=== PATIENT | male | born 1930 | race Caucasian/White ===

== ENCOUNTER → 2017-01-28 | Outpatient (CLI) | payer OTHER, BC ==
[~2017-01-28] MED LIST: ACET-1256 PO; DIGO0.122 PO; FURO-85 PO; IMD/2 PO; LNX125 PO; METO25TA3 PO; OPTIRAY 320 IV PRN; POTA10CA28 PO; SACC250C11; SIMV10TA2 PO; WARF5TAB90 PO
--- NOTE | 2017-01-28 14:58 | DIAGNOSTIC IMAGING REPORT ---
(CHEST) THORAX WITH CT DOSE: 1823.46 mGycm HISTORY: CECAL CA TECHNIQUE: Multiaxial CT images of the chest were performed following the intravenous administration of contrast. A dose lowering technique was utilized adhering to the principles of ALARA. COMPARISON: None. FINDINGS: Substernal thyroid 2 months containing calcified nodularity. Generalized thyroid enlargement. No significant axillary adenopathy. Hilar and mediastinal regions show several small nodes although no significant bulky adenopathy is appreciated. Lungs show no evidence for acute infiltrate. The are clear. There is a 3 mm nodular density right middle lobe. There is a 2 mm nodular density superior segment right lower lobe. Limited evaluation the upper abdomen shows a 1.8 cm hyperdensity superior right diaphragmatic lobe region IMPRESSION: 1. 2 small nodular densities right lung measuring 3 and 2 mm. 2. Remainder of the study is negative. 3. 1.8 cm hypodense nodule superior right hepatic lobe 4. Follow-up of the nodular densities per Fleischner criteria Please refer to below summary of Fleischner criteria recommendations for follow-up of incidental CT nodules (Dhara Santacruz, Guidelines for management of small pulmonary nodules detected on CT scans: A statement from the Fleischner Society, Radiology 237: [phone].) SOLID NODULES Solitary nodule size: <6 mm * low risk patients: no follow-up needed * high risk patients: optional CT at 12 months Solitary nodule size: 6-8 mm * low risk patients: follow-up at 6-12 months, then consider further follow-up at 18-24 months * high risk patients: initial follow-up CT at 6-12 months and then at 18-24 months if no change Solitary nodule size: >8 mm * either low or high risk patients - consider follow-up CT at 3 months, and/or CT-PET, and/or biopsy Multiple nodules size: <6 mm * low risk patients: no routine follow-up * high risk patients: optional CT at 12 months Multiple nodules size: 6-8 mm * low risk patients: follow-up at 3-6 months, then consider further follow-up at 18-24 months * high risk patients: follow-up at 3-6 months, then at 18-24 months if no change Multiple nodules size: >8 mm * low risk patients: follow-up at 3-6 months, then consider further follow-up at 18-24 months * high risk patients: follow-up at 3-6 months, then at 18-24 months if no change Note: newly detected indeterminate nodule in persons 35 years of age or older. * Low risk patients: minimal or absent history of smoking and/or other known risk factors * high risk patients: history of smoking or of other known risk factors (e.g. first degree relative with lung cancer, or exposure to asbestos, radon, uranium) * if a nodule up to 8 mm is partly solid or is ground glass further follow-up is required after 24 months to exclude possible slow growing adenocarcinoma (ML) SUBSOIL NODULES Solitary pure ground-glass nodule * nodule size <6 mm - no CT follow-up required * nodule size >=6 mm - follow-up CT at 6-12 months, then every 2 years until 5 years Solitary part-solid nodule * nodule size <6 mm - no CT follow-up required * nodule size >=6 mm - follow-up CT at 3-6 months. If unchanged, and solid component remains <6 mm, then annual follow-up for 5 years Multiple subsolid nodules * nodule size <6 mm - follow-up CT at 3-6 months, consider further follow-up at 2 and 4 years if stable * nodule size >=6 mm - follow-up CT at 3-6 months, subsequent management based on the most suspicious nodule(s) The above report was generated using voice recognition software. It may contain grammatical, syntax or spelling errors. Electronically signed by: Arash Banks M.D. 01/28/2017 2:56 PM Dictated Date/Time: 01/28/2017 2:52 PM
--- NOTE | 2017-01-28 15:02 | DIAGNOSTIC IMAGING REPORT ---
ABD/PELVIS IV AND ORAL CONT CLINICAL HISTORY: 86 years-old Male presenting with CECAL CA. TECHNIQUE: Multidetector CT of the abdomen and pelvis was performed after the administration of oral and intravenous contrast. IV contrast: 94 mL of Optiray 320. A dose lowering technique was used consistent with the principles of ALARA (as low as reasonably achievable). COMPARISON: 06/13/2016. CT DOSE (mGy.cm): The estimated cumulative dose is 1823.46 inclusive of the chest CT. FINDINGS: Leather Scrubber topogram: Left-sided pacer with leads to the right atrium and right ventricular apex noted. Lung bases: Lung bases clear. Multichamber enlargement of the heart. Coronary artery calcification. Right ventricular pacer wire appears to terminate along the interventricular septum. No pericardial or pleural effusion. Liver: Well-defined lobular hypodensity at the right hepatic dome, stable to slightly increased in size from prior, indeterminate but likely representing a hepatic cyst or hamartoma. Patent hepatic vasculature. Biliary: No intrahepatic or extrahepatic biliary ductal dilatation. Normal gallbladder. Pancreas: Moderate parenchymal atrophy. Cystic lesion in the uncinate process grossly similar in size to prior exam and somewhat poorly defined given the degree of parenchymal atrophy. This measures approximately 2 cm. No gross evidence of pancreatic ductal dilatation. Spleen: Normal. Adrenal glands: Focal calcification noted in the right adrenal gland. Otherwise normal. Kidneys and ureters: Nonobstructing 2 mm calculus at the lower pole the right kidney. No hydronephrosis. Ureters normal. Gastrointestinal tract: Postsurgical changes of right hemicolectomy. Stool ball noted at the transverse colon suture margin. No convincing evidence of recurrent mass lesion. No bowel obstruction. Peritoneal cavity: No free fluid or intraperitoneal gas. Bladder: Mild apparent wall thickening. Diverticula suspected along the lateral campos. Pelvic organs: Prostate enlargement likely secondary to benign prostatic hyperplasia. Vasculature: Atherosclerosis of the abdominal aorta with mild focal outpouching along the left lateral aspect in the infrarenal portion, possibly short segment dissection or pseudoaneurysm. No surrounding inflammatory change to suggest rupture. IVC patent. Lymph nodes: No enlarged lymph nodes in the abdomen or pelvis. Abdominal wall: Normal. Musculoskeletal: Degenerative changes of the right hip joint with joint space loss, subchondral sclerosis, and cystic change. Multilevel degenerative changes of the lumbar spine. IMPRESSION: 1. Postsurgical changes of right hemicolectomy. No evidence of residual or recurrent disease. No evidence of metastatic disease or lymphadenopathy in the abdomen or pelvis. 2. Right ventricular pacer wire appears to terminate along the interventricular septum. This may be within the range of what is acceptable. 3. Approximately 2 cm cystic lesion in the uncinate process of the pancreas. This is indeterminate and could represent a side branch intraductal papillary mucinous neoplasm or mucinous cyst. If there is clinical concern, further evaluation with contrast-enhanced MR could be obtained. 4. Nonobstructing 2 mm calculus in the right kidney. 5. Degenerative changes of the right hip. Electronically signed by: Dez Thomas M.D. 01/28/2017 3:01 PM Dictated Date/Time: 01/28/2017 2:49 PM
== END | disposition home or self-care (01) ==
LOC: C.CTS 13:50
PROVIDERS: ATTEND Internal Medicine Hematology
DX: C18.0 Malignant neoplasm of cecum (principal); R91.8 Other nonspecific abnormal finding of lung field

== ENCOUNTER → 2017-02-16 | Outpatient (CLI) | payer OTHER, BC ==
[~2017-02-16] MED LIST changes: -OPTIRAY 320 IV PRN
--- NOTE | 2017-02-16 12:40 | DIAGNOSTIC IMAGING REPORT ---
PET/CT CLINICAL HISTORY: Colorectal carcinoma. COMPARISON STUDY: CT scan of the chest, abdomen, and pelvis dated 01/28/2017 and 06/13/2016. TECHNIQUE: One hour following the IV administration of 13.91 mCi of F-18 FDG, PET/CT examination was performed from the orbital meatal line through the bony pelvis. Noncontrast CT is performed for the purposes of anatomic correlation and attenuation correction. Note that this does not reflect a diagnostic CT examination. Images were reviewed on a separate [employer] independent workstation. Fused images were obtained. Standard uptake values reported are maximum values within the region of interest expressed in gm/mL. FINDINGS: PET FINDINGS: Head and neck: There is expected physiologic activity within the visualized brain parenchyma at the skull base and the salivary glands. Thorax: Evaluation of the thorax demonstrates expected physiologic myocardial activity. A 3 mm right lower lobe pulmonary nodule seen image #118 is not FDG avid and too small for PET characterization. A small focus of FDG activity in the left hilum is nonspecific as seen on image #103. This demonstrates a maximum SUV of 4.2. No corresponding lymph node/lesion is seen on the CT images. Abdomen and pelvis: There is expected activity within the liver, spleen, kidneys, renal collecting system, and bladder. Low-level bowel activity is demonstrably within physical limits. A 2.2 cm cystic lesion is seen in the uncinate process of the pancreas on image #168. This was not demonstrably FDG avid. There is a 3.1 x 0.9 cm implant is identified along the right lower quadrant abdominal wall on image #191. This is FDG avid, with a maximum SUV of 3.8. There is a 2.1 cm FDG avid implant along the right lobe of the liver seen on image #150 this demonstrates a maximum SUV of 5.6. Additional peritoneal implants are seen on images #159, #179, #188, #201,# 203, and #214. Unenhanced CT images: Visual portions of the brain parenchyma demonstrate age-related involutional change. There are bilateral ocular lens implants. Mild mucosal thickening is seen in the left maxillary antrum. The remaining paranasal sinuses and mastoid air cells are clear. The salivary glands are normal in appearance. The thyroid gland is markedly enlarged with evidence of multinodular goiter. No cervical lymphadenopathy is identified. There is atherosclerotic calcification of the thoracic aorta which is normal in caliber. The heart is enlarged and there is a small pericardial effusion. The coronary arteries are densely calcified. A pacemaker is present in the left chest wall. There is no mediastinal, hilar, or axillary lymphadenopathy. Biapical scarring is observed. Accessory azygous fissure is incidentally noted. No airspace consolidation or pleural effusion is seen. There is a small hiatal hernia. The unenhanced liver, gallbladder, spleen, and adrenal glands are grossly unremarkable. The kidneys are atrophic and without hydronephrosis. There is a 4 mm nonobstructing right renal calculus. The pancreas is atrophic. There is advanced atherosclerotic calcification and ectasia of the abdominal aorta. There are postoperative changes from right hemicolectomy with ileocolic anastomosis. No bowel obstruction is seen. There is no intraperitoneal free air or abdominal ascites. No abdominal or pelvic lymphadenopathy is identified. The bladder is decompressed and not well evaluated. The prostate gland is normal as imaged. The skeletal structures are osteopenic. No lytic or blastic lesions are seen. Arthritic changes present throughout the spine and in the hips. IMPRESSION: 1. 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 This has likely modestly progressed from 06/13/2016. 2. No additional foci of FDG avid metastatic disease are clearly identified. 3. There are postoperative changes from right hemicolectomy with ileocolic anastomosis. No bowel obstruction is seen. 4. Findings are consistent with multinodular goiter. 5. 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 6. There is no airspace consolidation or pleural effusion. 7. Additional findings as above. Electronically signed by: Cliff Harkins M.D. 02/16/2017 12:39 PM Dictated Date/Time: 02/16/2017 12:08 PM
== END | disposition home or self-care (01) ==
LOC: C.PET 09:00
PROVIDERS: ATTEND Internal Medicine Hematology & Oncology
DX: C18.9 Malignant neoplasm of colon, unspecified (principal)

== ENCOUNTER 2017-03-05 17:50 | Emergency (ER) | payer OTHER, BC ==
[~2017-03-05] VITALS: Ht 182.9 cm; Wt 94.3 kg
[~2017-03-05 17:50] MED LIST changes: -ACET-1256 PO; -LNX125 PO; -SACC250C11
[2017-03-05 17:58] VITALS: TEMP 36.2; Ht 182.9 cm; Wt 94.3 kg
[2017-03-05] MEDS ORDERED: SODIUM CHLORIDE 0.9% 1000ML 1,000 ML IV STA (18:20)
[2017-03-05] MEDS ORDERED: LNX125 PO (19:03)
[2017-03-05] MEDS ORDERED: IMD/2 PO (19:03)
[2017-03-05 19:13] LABS: BASO % 0.2 %; BASO ABS # 0.01 K/uL (0-0.2); COMPLETE YES; EOS % 1.6 %; HEMATOCRIT 40.2 % (42-52); IG% 0.2 %; LYMPH % 17.5 %; LYMPH ABS # 0.85 K/uL (1.2-3.4); MEAN CELL VOLUME 95.3 fL (80-100); MEAN CORPUSCULAR HEMOGLOBIN 32.9 pg (25-34); MEAN CORPUSCULAR HGB CONC 34.6 g/dl (32-36); MEAN PLATELET VOLUME 10.3 fL (7.4-10.4); MONO % 12.3 %; NEUT % 68.2 %; PLATELET COUNT 203 K/uL (130-400); RED BLOOD COUNT 4.22 M/uL (4.7-6.1); WHITE BLOOD COUNT 4.87 K/uL (4.8-10.8)
--- NOTE | 2017-03-05 19:29 | DIAGNOSTIC IMAGING REPORT ---
ABD/PELVIS NO IV OR ORAL CONT HISTORY: 86 years-old Male acute diffuse abdominal pain. 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 Patient has history of prior right hemicolectomy with ileocolic anastomosis. COMPARISON: PET CT 02/16/2017, CT abdomen and pelvis 01/28/2017 TECHNIQUE: Multiple axial CT images of the abdomen and pelvis were obtained without contrast. A dose lowering technique was used consistent with the principals of ALARA. FINDINGS: There is an unchanged 4 mm noncalcified pulmonary nodule of the lateral basal segment right lower lobe. There is mild bibasilar subsegmental atelectasis. There is no pneumoperitoneum identified. The imaged inferior cardiac chambers are mildly enlarged with pacer leads noted. 2.4 cm low attenuating lesion of the hepatic dome is again seen which is unchanged and likely benign, not FDG avid on comparison PET CT. The spleen, gallbladder and adrenal glands are unremarkable. 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 Left kidney is unremarkable. There are a few calcifications of the inferior pole right kidney measuring up to 3 mm suggesting calculi. The larger calcification alternatively may reflect a renal vascular calcification. Urinary bladder is collapsed with wall thickening and mild surrounding inflammatory stranding. There is moderate plaquing of the abdominal aorta. Ectasia of the infrarenal abdominal aorta is seen, 2.9 x 2.2 cm. No new bulky adenopathy identified. There is no bowel obstruction. Postoperative changes from prior right hemicolectomy with ileocolic anastomosis noted. Multiple peritoneal nodules are again seen which were FDG avid on comparison study. Index lesion adjacent to the right lobe of the liver is seen, 2.0 cm, unchanged. 1.8 cm lesion of the right lower abdomen on image 203 also appears unchanged. Soft tissues are unremarkable. Bones are moderately demineralized. Advanced degenerative changes involve the right hip. Subcortical cystic changes also noted throughout the right hip. No focal suspicious lytic or blastic bony lesion seen to suggest metastasis. IMPRESSION: 1. No acute intra-abdominal or intrapelvic abnormality identified. 2. Redemonstration of multifocal peritoneal metastasis without significant change from comparison PET/CT dated 02/16/2017. 3. Prior right hemicolectomy with ileocolic anastomosis. 4. Urinary bladder is partially collapsed with wall thickening and mild perivesicular inflammatory stranding. Correlate with urinalysis to exclude cystitis. 5. 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 This was not FDG avid on comparison PET CT. The above report was generated using voice recognition software. It may contain grammatical, syntax or spelling errors. Electronically signed by: Tal Murray M.D. 03/05/2017 7:28 PM Dictated Date/Time: 03/05/2017 7:14 PM
[2017-03-05 19:30] LABS: BUN/CREATININE RATIO 21.7 (10-20); CALCIUM 9.6 mg/dl (8.5-10.1); CREATININE 0.86 mg/dl (0.60-1.40)
[2017-03-05 19:32] LABS: INR 3.3 (0.9-1.1); PARTIAL THROMBOPLASTIN RATIO 1.6; PROTHROMBIN TIME (PATIENT) 37.4 SECONDS (9.0-12.0)
--- NOTE | 2017-03-05 20:07 | EMERGENCY ROOM VISIT NOTE ---
History Report prepared by Desire: Felton Lewis Under the Supervision of: Dr. Fam Rob D.O. First contact with patient: 18:04 Chief Complaint: REFERRED BY DOCTOR Stated Complaint: REFERRED BY DOCTOR History of Present Illness The patient is a 86 year old male who presents to the Emergency Room with complaints of intermittent diarrhea that worsened 1 year ago. The patient has a history colon cancer. Secondary to this, he has been having intermittent diarrhea and constipation for the past year. He notes that recently his diarrhea has been worse. He saw Dr. Nelson's PA-C today. He had x-rays of his abdomen done because of his diarrhea. He was sent here secondary to those results. He has not had a bowel movement in two days. He has been eating very minimally for the past two days. He denies any abdominal pain at this time. Source of History: patient Onset: 1 year ago Position: other (GI) Symptom Intensity: moderate Quality: other (Diarrhea) Timing: worsening Associated Symptoms: No abdominal pain Note: He has not had a bowel movement in two days. Review of Systems See HPI for pertinent positives & negatives. A total of 10 systems reviewed and were otherwise negative. 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 Social History Smoking Status: Former Smoker Alcohol Use: occasionally Drug Use: none Marital Status: Occupation Status: retired Current/Historical Medications Scheduled Digoxin (Digoxin), 0.125 MG PO QAM Metoprolol Succinate (Toprol Xl), 25 MG PO BID Simvastatin (Zocor), 10 MG PO HS Warfarin Sodium (Coumadin), 2.5 TABLET PO [id number] Warfarin Sodium (Coumadin), 5 MG PO WEDNESDAYS Scheduled PRN Furosemide (Lasix), 20 MG PO DAILY PRN for EDEMA Loperamide Hcl (Imodium), 2 MG PO DIRECTED PRN for Diarrhea Potassium Chloride (Micro-K Ext Rel), 10 MEQ PO DAILY PRN for EDEMA Allergies Coded Allergies: No Known Allergies (Unverified , 03/05/17) Physical Exam Vital Signs Date Time Temp Pulse Resp B/P (MAP) Pulse Ox O2 Delivery O2 Flow Rate FiO2 03/05/17 19:22 63 18 134/76 98 Room Air 03/05/17 17:58 36.2 80 16 133/81 96 Room Air Physical Exam CONSTITUTIONAL/VITAL SIGNS: Reviewed / noted above. GENERAL: Non-toxic in appearance. INTEGUMENTARY: Warm, dry, and [place]. HEAD: Normocephalic. EYES: without scleral icterus or trauma. ENT/OROPHARYNX: clear and moist. LYMPHADENOPATHY/NECK: Is supple without lymphadenopathy or meningismus. RESPIRATORY: Lungs clear and equal. CARDIOVASCULAR: Regular rate and rhythm. GI/ABDOMEN: Soft and nontender. No organomegaly or pulsatile mass. No rebound or guarding. Normal bowel sounds. EXTREMITIES: Warm and well perfused. BACK: No CVA tenderness. NEUROLOGICAL: Intact without focal deficits. PSYCHIATRIC: normal affect. MUSCULOSKELETAL: Normally developed with good muscle tone. Medical Decision & Procedures ER Provider Diagnostic Interpretation: Radiology results as stated below per my review and radiologist interpretation: ABD/PELVIS NO IV OR ORAL CONT HISTORY: 86 years-old Male acute diffuse abdominal pain. 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 Patient has history of prior right hemicolectomy with ileocolic anastomosis. COMPARISON: PET CT 02/16/2017, CT abdomen and pelvis 01/28/2017 TECHNIQUE: Multiple axial CT images of the abdomen and pelvis were obtained without contrast. A dose lowering technique was used consistent with the principals of ALARA. FINDINGS: There is an unchanged 4 mm noncalcified pulmonary nodule of the lateral basal segment right lower lobe. There is mild bibasilar subsegmental atelectasis. There is no pneumoperitoneum identified. The imaged inferior cardiac chambers are mildly enlarged with pacer leads noted. 2.4 cm low attenuating lesion of the hepatic dome is again seen which is unchanged and likely benign, not FDG avid on comparison PET CT. The spleen, gallbladder and adrenal glands are unremarkable. 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 Left kidney is unremarkable. There are a few calcifications of the inferior pole right kidney measuring up to 3 mm suggesting calculi. The larger calcification alternatively may reflect a renal vascular calcification. Urinary bladder is collapsed with wall thickening and mild surrounding inflammatory stranding. There is moderate plaquing of the abdominal aorta. Ectasia of the infrarenal abdominal aorta is seen, 2.9 x 2.2 cm. No new bulky adenopathy identified. There is no bowel obstruction. Postoperative changes from prior right hemicolectomy with ileocolic anastomosis noted. Multiple peritoneal nodules are again seen which were FDG avid on comparison study. Index lesion adjacent to the right lobe of the liver is seen, 2.0 cm, unchanged. 1.8 cm lesion of the right lower abdomen on image 203 also appears unchanged. Soft tissues are unremarkable. Bones are moderately demineralized. Advanced degenerative changes involve the right hip. Subcortical cystic changes also noted throughout the right hip. No focal suspicious lytic or blastic bony lesion seen to suggest metastasis. IMPRESSION: 1. No acute intra-abdominal or intrapelvic abnormality identified. 2. Redemonstration of multifocal peritoneal metastasis without significant change from comparison PET/CT dated 02/16/2017. 3. Prior right hemicolectomy with ileocolic anastomosis. 4. Urinary bladder is partially collapsed with wall thickening and mild perivesicular inflammatory stranding. Correlate with urinalysis to exclude cystitis. 5. 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 This was not FDG avid on comparison PET CT. The above report was generated using voice recognition software. It may contain grammatical, syntax or spelling errors. Electronically signed by: Tal Murray M.D. 03/05/2017 7:28 PM Dictated Date/Time: 03/05/2017 7:14 PM Laboratory Results 03/05/17 18:45 Red Blood Count 4.22, Mean Corpuscular Volume 95.3, Mean Corpuscular Hemoglobin 32.9, Mean Corpuscular Hemoglobin Concent 34.6, Mean Platelet Volume 10.3, Neutrophils (%) (Auto) 68.2, Lymphocytes (%) (Auto) 17.5, Monocytes (%) (Auto) 12.3, Eosinophils (%) (Auto) 1.6, Basophils (%) (Auto) 0.2, Neutrophils # (Auto ) 3.32, Lymphocytes # (Auto) 0.85, Monocytes # (Auto) 0.60, Eosinophils # (Auto ) 0.08, Basophils # (Auto) 0.01 03/05/17 18:45 Test 03/05/17 18:45 White Blood Count 4.87 K/uL (4.8-10.8) Red Blood Count 4.22 M/uL (4.7-6.1) Hemoglobin 13.9 g/dL (14.0-18.0) Hematocrit 40.2 % (42-52) Mean Corpuscular Volume 95.3 fL (80-100) Mean Corpuscular Hemoglobin 32.9 pg (25-34) Mean Corpuscular Hemoglobin Concent 34.6 g/dl (32-36) Platelet Count 203 K/uL (130-400) Mean Platelet Volume 10.3 fL (7.4-10.4) Neutrophils (%) (Auto) 68.2 % Lymphocytes (%) (Auto) 17.5 % Monocytes (%) (Auto) 12.3 % Eosinophils (%) (Auto) 1.6 % Basophils (%) (Auto) 0.2 % Neutrophils # (Auto) 3.32 K/uL (1.4-6.5) Lymphocytes # (Auto) 0.85 K/uL (1.2-3.4) Monocytes # (Auto) 0.60 K/uL (0.11-0.59) Eosinophils # (Auto) 0.08 K/uL (0-0.5) Basophils # (Auto) 0.01 K/uL (0-0.2) RDW Standard Deviation 44.3 fL (36.4-46.3) RDW Coefficient of Variation 12.7 % (11.5-14.5) Immature Granulocyte % (Auto) 0.2 % Immature Granulocyte # (Auto) 0.01 K/uL (0.00-0.02) Prothrombin Time 37.4 SECONDS (9.0-12.0) Prothromb Time International Ratio 3.3 (0.9-1.1) Activated Partial Thromboplast Time 40.9 SECONDS (21.0-31.0) Partial Thromboplastin Ratio 1.6 Anion Gap 7.0 mmol/L (3-11) Est Creatinine Clear Calc Drug Dose 70.8 ml/min Estimated GFR () 89.7 Estimated GFR (Non- 77.4 BUN/Creatinine Ratio 21.7 (10-20) Calcium Level 9.6 mg/dl (8.5-10.1) Total Bilirubin 0.6 mg/dl (0.2-1) Direct Bilirubin 0.2 mg/dl (0-0.2) Aspartate Amino Transf (AST/SGOT) 14 U/L (15-37) Alanine Aminotransferase (ALT/SGPT) 20 U/L (12-78) Alkaline Phosphatase 35 U/L (45-117) Total Protein 7.3 gm/dl (6.4-8.2) Albumin 4.0 gm/dl (3.4-5.0) Lipase 45 U/L (73-393) Laboratory results as stated above per my review. Medications Administered Medications (Trade) Dose Ordered Sig/Natali Route Start Time Stop Time Status Last Admin Dose Admin Sodium Chloride 1,000 ml @ 250 mls/hr Q4H STAT IV 03/05/17 18:20 03/05/17 22:19 03/05/17 19:22 250 MLS/HR ED Course 1803: Previous medical records were reviewed. The patient was evaluated in room B5. A complete history and physical examination was performed. 1819: Ordered Sodium Chloride 1000 ml @ 250 mls/hr IV 2014: On reevaluation, the patient is resting. I discussed the results and findings with the patient. He verbalized agreement of the treatment plan. He was discharged home. Medical Decision Differential considered: pancreatitis, hepatitis, or acute cholecystitis, AAA, UTI, pyelonephritis, kidney stones, appendicitis, diverticulitis, shingles, bowel obstruction mesenteric ischemia, intussusception, hernia, and testicular torsion. This is an 86-year-old male who presents to the ED with chief complaint of diarrhea. The patient actually presented because he was told to come here based on an x-ray of his abdomen a couple of days ago that revealed ileus. Stool test did not show see Kal. Other stool tests are pending. The patient has no other specific complaints. He denies any abdominal pain at this time. He has not had diarrhea for the past 2 days. His vital signs are normal. His physical exam was unremarkable. CT scan of the abdomen and pelvis did not show any acute process. CBC, complete metabolic panel were unremarkable. INR is 3.3. The patient was told results and discharged. Medication Reconcilliation Current Medication List: was personally reviewed by me Blood Pressure Screening Patient's blood pressure: Normal blood pressure Blood pressure disposition: Did not require urgent referral Impression Primary Impression: Diarrhea Scribe Attestation The scribe's documentation has been prepared under my direction and personally reviewed by me in its entirety. I confirm that the note above accurately reflects all work, treatment, procedures, and medical decision making performed by me. Departure Information Dispostion Home / Self-Care Referrals No Doctor, Assigned (PCP) Forms HOME CARE DOCUMENTATION FORM, IMPORTANT VISIT INFORMATION, WORK / SCHOOL INSTRUCTIONS Patient Instructions My [facility] Additional Instructions Follow-up with your doctor for further care and evaluation in 1-2 days. Return to the emergency department for worsening or new symptoms or any concerns. You have been examined and treated today on an emergency basis only. This is not a substitute for, or an effort to provide, complete comprehensive medical care. It is impossible to recognize and treat all injuries or illnesses in a single emergency department visit. It is therefore important that you follow up closely with your doctor. Call as soon as possible for an appointment.
[2017-03-05 20:38] VITALS: BP 139/70; PULSE 65; O2SAT 98
[2017-03-27] MEDS ORDERED: ACET-1256 PO (09:14)
[2017-03-27] MEDS ORDERED: SACC250C11 (09:16)
== END 2017-03-05 20:38 | disposition home or self-care (01) ==
LOC: C.EDB 17:52
DX: R19.7 Diarrhea, unspecified (principal); Z85.038 Personal history of other malignant neoplasm of large intestine; I10 Essential (primary) hypertension; Z98.49 Cataract extraction status, unspecified eye; Z87.891 Personal history of nicotine dependence; Z79.01 Long term (current) use of anticoagulants; Z79.899 Other long term (current) drug therapy

== ENCOUNTER → 2017-03-27 | Day surgery (SDC) | payer OTHER, BC ==
[~2017-03-27] VITALS: Ht 182.9 cm; Wt 95.8 kg
[2017-03-27] VITALS (7 sets, daily range): BP systolic 128–168; BP diastolic 69–102; PULSE 63–73; TEMP 36.2–36.6; O2SAT 97–100; Ht 182.9 cm; Wt 95.8 kg
[~2017-03-27] MED LIST changes: +ACET-1256 PO; -DIGO0.122 PO; +LNX125 PO; +SACC250C11
[2017-03-27 09:10] LABS: PLATELET COUNT 175 K/uL (130-400)
[2017-03-27 09:19] LABS: INR 1.3 (0.9-1.1); PARTIAL THROMBOPLASTIN RATIO 1.2
--- NOTE | 2017-03-27 11:51 | Discharge Instructions ---
Discharge Instructions Procedure Procedure Date: Mar 27, 2017. Reason for visit: Rt Side Peritoneal Tumor *Fall Risk Pt Cannot Walk. Discharge Discharge Date: Mar 27, 2017. Discharge Diagnosis: s/p CT guided FNA of peritoneal implant Instructions Activity Recommendations: 1 Day-May resume regular activity Return to School/Work: no limitations Recommended Home Diet: No Limitations Provider Instructions: ACTIVITY RECOMMENDATIONS: * Rest today. * Resume regular activity in one day. MEDICATIONS: * May take Tylenol or Ibuprofen as needed for pain. DIET: * Resume previous diet. SPECIAL CARE INSTRUCTIONS: Call your doctor if: * Temperature above 101 degrees F. * Pain not relieved by pain medicine ordered. * Increased drainage or redness from incision. * Notify your doctor with any questions or concerns. Call your doctor or go to the nearest Emergency Department if you experience: * Increased chest pain or shortness of breath. FOLLOW UP VISIT: Follow-up with Referring Physician as scheduled. Allergies Coded Allergies: No Known Allergies (Unverified , 03/27/17) Remberto Jacinto Recommendations: Call your doctor if: * Temperature above 101 degrees * Pain not relieved by pain medicine ordered * There is increased drainage or redness from any incision * You have any unanswered questions or concerns. Your Doctors Instructions noted above were prepared by provider Jerry Mcnally. Patient Signature Section: Patient Instructions Signature Page Roddy Jack Patient (or Guardian) Signature/Date: I have read and understand the instructions given to me by my caregivers. Caregiver/RN/Doctor Signature/Date: The above-named patient and/or guardian has received patient instructions on this date. + Original Patient Signature Page (only) stays with chart. Please make copy for patient.
--- NOTE | 2017-03-27 11:56 | DIAGNOSTIC IMAGING REPORT ---
CT GUIDED FINE NEEDLE ASPIRATION OF RIGHT SIDED PERITONEAL IMPLANT CLINICAL HISTORY: Peritoneal implants. Colon cancer. COMPARISON STUDY: CT of the abdomen and pelvis March 05, 2017. PROCEDURE: Axial unenhanced images of the abdomen again demonstrated multiple peritoneal implants. A 1.9 cm right lateral peritoneal implant was targeted. The procedure, risks and benefits were discussed with the patient including risk of bleeding, infection and injury to adjacent structures. The patient agreed to the procedure and informed written consent was obtained. The procedure was performed by Dr. Mcnally following a timeout. Skin was prepped and draped in sterile fashion and local anesthesia was achieved with 1% lidocaine. Under intermittent CT guidance, 5 22-gauge fine needle aspirations of the nodule were performed. Samples were deemed preliminarily adequate by pathology. The patient tolerated the procedure well and no immediate complications were evident. IMPRESSION: CT-guided fine needle aspiration of right lower quadrant peritoneal implant. Electronically signed by: Jerry Mcnally M.D. 03/27/2017 11:55 AM Dictated Date/Time: 03/27/2017 11:49 AM
== END | disposition home or self-care (01) ==
LOC: C.ACU 08:33
PROVIDERS: ATTEND Internal Medicine Hematology & Oncology
DX: K66.9 Disorder of peritoneum, unspecified (principal); C18.7 Malignant neoplasm of sigmoid colon

== ENCOUNTER → 2017-08-11 | Outpatient (CLI) | payer OTHER, BC ==
--- NOTE | 2017-08-11 16:20 | DIAGNOSTIC IMAGING REPORT ---
R VENOUS DOPP LOWER EXT UNILAT HISTORY: 87 years-old Male RIGHT LOWER EXT PAIN AND SWELLING R/O DVT acute right lower extremity pain and swelling COMPARISON: Duplex venous Doppler study of the lower extremities 03/30/2013 TECHNIQUE: Multiple real-time sonographic images of the right lower extremity deep venous structures were obtained assessing grayscale appearance, color and spectral flow. FINDINGS: There is normal flow, compressibility, phasicity and augmentation of the right lower extremity deep venous structures. There is linear echogenic stranding within the patent popliteal vein. No occlusive thrombus. IMPRESSION: 1. No occlusive deep venous thrombosis identified. 2. 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 The above report was generated using voice recognition software. It may contain grammatical, syntax or spelling errors. Electronically signed by: Tal Murray M.D. 08/11/2017 4:19 PM Dictated Date/Time: 08/11/2017 4:16 PM
== END | disposition home or self-care (01) ==
LOC: C.ULTRBC 15:18
DX: M79.661 Pain in right lower leg (principal)